=== PATIENT | female | born 1955 | race Caucasian/White ===

== ENCOUNTER → 2016-07-20 | Outpatient (CLI) | payer BC | LOC: WI 11:03 | PROVIDERS: ATTEND Physician Assistant | DX: Z12.31 Encounter for screening mammogram for malignant neoplasm of breast (principal) | CPT/HCPCS: 77067; G0202 ==

== ENCOUNTER 2016-10-16 15:44 | Observation (INO) | payer BC ==
--- NOTE | 2016-10-16 16:23 | ER Document Report ---
ED General - General Chief Complaint: Syncope Stated Complaint: POSSIBLE SYNCOPE Time Seen by Provider: 10/16/16 16:01 Mode of Arrival: Ambulatory Information source: Patient Notes: This is a 61-year-old female with a history of hypertension, TIA, carotid endarterectomy in the past who is brought in by EMS after syncopal episode. Patient states she was at riding motorcycles much of the day have much and did not have much to drink. She states that she was under shade at the time became nauseated and vomited 4 times. Patient states she passed out after vomiting. EMS was called and found patient diaphoretic and wheezing. Oxygen saturation in the field was reported at 88%. Patient was treated in the field with IV fluids, albuterol and ipratropium and IV Zofran. Review of systems: Patient did states she has had some chronic atypical chest pain on and off for the last few days TRAVEL OUTSIDE OF THE [place] IN LAST 30 DAYS: No - HPI Onset: Just prior to arrival Onset/Duration: Sudden Quality of pain: No pain Severity: None Pain Level: Denies Associated symptoms: Shortness of breath. denies: Chills, Nonproductive cough, Productive cough, Fever Exacerbated by: Denies Relieved by: Denies Similar symptoms previously: No Recently seen / treated by doctor: No - Related Data Allergies/Adverse Reactions: Sulfa (Sulfonamide Antibiotics) Allergy (Verified 07/22/15 15:10) Past Medical History - General Information source: Patient - Social History Smoking Status: Current Every Day Smoker Cigarette use (# per day): Yes Chew tobacco use (# tins/day): No Frequency of alcohol use: None Drug Abuse: None Lives with: Family Family History: Reviewed & Not Pertinent Patient has suicidal ideation: No Patient has homicidal ideation: No - Past Medical History Cardiac Medical History: Reports: Hx Hypercholesterolemia, Hx Hypertension Pulmonary Medical History: Reports: Hx Asthma EENT Medical History: Reports: None Neurological Medical History: Reports: None Endocrine Medical History: Reports: None Renal/ Medical History: Reports: None Malignancy Medical History: Reports: None GI Medical History: Reports: None Musculoskeltal Medical History: Reports None Skin Medical History: Reports None Psychiatric Medical History: Reports: None Traumatic Medical History: Reports: None Infectious Medical History: Reports: None Past Surgical History: Reports: Hx Section, Hx Vascular Surgery - L carotid - Immunizations Hx Diphtheria, Pertussis, Tetanus Vaccination: No Review of Systems - Review of Systems Constitutional: denies: Chills, Fever EENT: No symptoms reported Cardiovascular: See HPI Respiratory: No symptoms reported Gastrointestinal: No symptoms reported Genitourinary: No symptoms reported Female Genitourinary: No symptoms reported Musculoskeletal: No symptoms reported Skin: No symptoms reported Hematologic/Lymphatic: No symptoms reported Neurological/Psychological: No symptoms reported Physical Exam - Vital signs Vitals: Temp Pulse Resp BP Pulse Ox 97.7 F 61 19 98/57 L 96 10/16/16 15:48 10/16/16 15:48 10/16/16 15:48 10/16/16 15:48 10/16/16 15:48 Notes: Physical exam: GENERAL: 61-year-old female, alert and oriented 3, appears lethargic but appropriate. HEAD: Atraumatic, normocephalic. EYES: Pupils equal round and reactive to light, extraocular movements intact, sclera anicteric, conjunctiva are normal. ENT: TMs normal, nares patent, oropharynx clear without exudates. Moist mucous membranes. NECK: Normal range of motion, supple without lymphadenopathy or JVD. LUNGS: Breath sounds clear to auscultation bilaterally and equal. No wheezes rales or rhonchi. HEART: Regular rate and rhythm without murmurs, rubs or gallops. ABDOMEN: Soft, normoactive bowel sounds. No tenderness to palpation. No guarding, no rebound. No masses appreciated. EXTREMITIES: Normal range of motion, no pitting or edema. No clubbing or cyanosis. NEUROLOGICAL: Cranial nerves II through XII grossly intact. Normal speech, normal gait. PSYCH: Normal mood, normal affect. SKIN: Warm, Dry, normal turgor, no rashes or lesions noted. Course - Vital Signs Vital signs: Temp Pulse Resp BP Pulse Ox 97.7 F 61 21 H 107/65 99 10/16/16 15:48 10/16/16 15:48 10/16/16 17:09 10/16/16 17:09 10/16/16 17:09 - Laboratory Result Diagrams: 10/16/16 16:50 10/16/16 16:50 Laboratory results interpreted by me: 10/16/16 10/16/16 16:50 16:50 WBC 11.5 H RDW 14.4 H Absolute Neutrophils 8.7 H BUN 22 H Glucose 74 L Creatine Kinase 169 H - Diagnostic Test Radiology reviewed: Image reviewed, Reports reviewed - EKG Interpretation by Me Rate: Normal Rhythm: NSR - EKG shows normal sinus rhythm with a ventricular rate of 60, no acute ST-T wave changes Discharge - Discharge Clinical Impression: Syncope Condition: Stable Disposition: ADMITTED OBSERVATION Admitting Provider: Hospitalist - Dr Coleman Unit Admitted: Telemetry
[2016-10-16 17:15] LABS: ABSOLUTE BASOPHILS # (AUTO) 0.1 10^3/uL (0.0-0.2); ABSOLUTE LYMPHOCYTES (AUTO) 1.7 10^3/uL (0.5-4.7); ABSOLUTE NEUT (AUTO) 8.7 10^3/uL (1.7-8.2); BASOPHILS % (AUTO) 0.5 % (0-2); EOSINOPHILS % (AUTO) 0.3 % (0-6); HEMATOCRIT 38.6 % (36.0-47.0); HEMOGLOBIN 12.7 g/dL (12.0-15.5); HGB HCT DIFFERENCE -0.5; LYMPHOCYTES % (AUTO) 15.2 % (13-45); MEAN CORPUSCULAR HEMOGLOBIN 30.7 pg (27.0-33.4); MEAN CORPUSCULAR HGB CONC 32.8 g/dL (32.0-36.0); MEAN CORPUSCULAR VOLUME 94 fl (80-97); MONOCYTES % (AUTO) 8.3 % (3-13); RED BLOOD COUNT 4.12 10^6/uL (3.72-5.28); RED CELL DISTRIBUTION WIDTH 14.4 % (11.5-14.0); SEGMENTED NEUTROPHILS % (AUTO) 75.7 % (42-78); WHITE BLOOD COUNT 11.5 10^3/uL (4.0-10.5)
[2016-10-16 17:16] LABS: PROTHROMBIN TIME 14.8 SEC (11.4-15.4)
--- NOTE | 2016-10-16 17:22 | RADIOLOGY REPORT (SQ) ---
EXAM DESCRIPTION: CHEST SINGLE VIEW COMPLETED DATE/TIME: 10/16/2016 4:41 pm REASON FOR STUDY: syncope COMPARISON: 07/22/2015 EXAM PARAMETERS: NUMBER OF VIEWS: One view. TECHNIQUE: Single frontal radiographic view of the chest acquired. RADIATION DOSE: NA LIMITATIONS: None. FINDINGS: LUNGS AND PLEURA: No acute opacities, masses or pneumothorax. No pleural effusion. MEDIASTINUM AND HILAR STRUCTURES: No masses. Contour normal. HEART AND VASCULAR STRUCTURES: Heart normal in size. Normal vasculature. BONES: No acute findings. HARDWARE: None in the chest. OTHER: No other significant finding. IMPRESSION: NO ACUTE RADIOGRAPHIC FINDING IN THE CHEST. TECHNICAL DOCUMENTATION: JOB ID: [id number]
[2016-10-16 17:32] LABS: ALANINE AMINOTRANSFERASE 30 U/L (9-52); ALKALINE PHOSPHATASE 56 U/L (38-126); ANION GAP 8 (5-19); ASPARTATE AMINO TRANSFERASE 31 U/L (14-36); BILIRUBIN,DIRECT 0.3 mg/dL (0.0-0.4); BILIRUBIN,TOTAL 0.6 mg/dL (0.2-1.3); BLOOD UREA NITROGEN 22 mg/dL (7-20); CALCIUM 9.7 mg/dL (8.4-10.2); CARBON DIOXIDE 24 mmol/L (22-30); CHLORIDE 107 mmol/L (98-107); CREATINE KINASE 169 U/L (30-135); CREATININE RESULT 0.88 mg/dL (0.52-1.25); GLUCOSE 74 mg/dL (75-110); POTASSIUM 4.3 mmol/L (3.6-5.0); SODIUM 138.5 mmol/L (137-145); TOTAL PROTEIN 6.4 g/dL (6.3-8.2)
[2016-10-16 17:41] LABS: CREATINE KINASE MB 1.32 ng/mL (<4.55); TROPONIN I < 0.012 ng/mL
[2016-10-16] MEDS ORDERED: NORMAL SALINE 1000 ML 1,000 ML IV PRN ×2 (18:09→18:21)
[2016-10-16] MEDS ORDERED: ACETAMINOPHEN 325 MG TABLET PO PRN (18:21)
[2016-10-16] MEDS ORDERED: ONDANSETRON HCL INJ/PF 4 MG/2 ML SDV IV PRN (18:21)
[2016-10-16] MEDS ORDERED: ALBUTEROL SULFATE 0.083% NEB 2.5 MG/3 ML AMPUL NEB PRN (18:21)
[2016-10-16] MEDS ORDERED: ONDANSETRON 4 MG TAB.RAPDIS PO PRN (18:21)
--- NOTE | 2016-10-16 18:41 | PDOC H&P ---
History of Present Illness Admission Date/PCP: KYLER MACEDO MD Patient complains of: Blackout spell History of Present Illness: ERICA GORDON is a 61 year old female a previous history of CVA who presents after having a syncopal episode. The patient was out riding her motorcycle today with her significant other and she reports that they stopped at a bar for a beer and some food. The patient reports that after eating she felt dizzy and lightheaded and then began vomiting. She then had a witnessed syncopal episode but was only out for a very short period of time and regained consciousness. She did not have any tonic-clonic movement activity. She denied having any palpitations or tachycardia. It was witnessed by her significant other and she did not have any tonic-clonic movements. Patient relates that she did have problems with some numbness and tingling in her right hand earlier today and on exam she does have decreased right soft work wrapper examiner strength. She has had a previous CVA and had a left carotid endarterectomy done for significant occlusion. The patient also was noted to be hypoxic when she first was picked up by EMS with an oxygen saturation in the 80s. The patient has been has felt dizzy when she stands up but has already gotten IV fluids at the time of my exam. Past Medical History Cardiac Medical History: Reports: Hyperlipidema, Hypertension, Peripheral Vascular Disease Pulmonary Medical History: Reports: Asthma EENT Medical History: Reports: None Neurological Medical History: Reports: Ischemic CVA, Other - Bowser's palsy Endocrine Medical History: Reports: Gestational Diabetes Renal/ Medical History: Reports: None Malignancy Medical History: Reports: None GI Medical History: Reports: None Musculoskeltal Medical History: Reports: None Skin Medical History: Reports: None Psychiatric Medical History: Reports: None Traumatic Medical History: Reports: None Hematology: Reports: None Infectious Medical History: Reports: None Past Surgical History Past Surgical History: Reports: Section, Vascular Surgery - L carotid endarterectomy Social History Information Source: Patient Lives with: Family Smoking Status: Current Every Day Smoker Frequency of Alcohol Use: Rare Hx Recreational Drug Use: No Drugs: None Hx Prescription Drug Abuse: No - Advance Directive Resuscitation Status: Full Code Family History Family History: Mother had diabetes and hypertension. Father had pancreatic cancer. Parental Family History Reviewed: Yes Children Family History Reviewed: No Sibling(s) Family History Reviewed.: No Medication/Allergy Home Medications: No Home Medications 07/22/15 Allergies/Adverse Reactions: Sulfa (Sulfonamide Antibiotics) Allergy (Verified 07/22/15 15:10) Review of Systems Constitutional: ABSENT: chills, fever(s), headache(s), weight gain, weight loss Eyes: ABSENT: visual disturbances Ears: ABSENT: hearing changes Cardiovascular: ABSENT: chest pain, dyspnea on exertion, edema, orthropnea, palpitations Respiratory: ABSENT: cough, hemoptysis Gastrointestinal: PRESENT: heartburn, nausea, vomiting. ABSENT: abdominal pain , constipation, diarrhea, hematemesis, hematochezia Genitourinary: ABSENT: dysuria, hematuria Musculoskeletal: ABSENT: joint swelling Integumentary: ABSENT: rash, wounds Neurological: PRESENT: weakness - Right hand Psychiatric: ABSENT: anxiety, depression Endocrine: ABSENT: cold intolerance, heat intolerance, polydipsia, polyuria Hematologic/Lymphatic: ABSENT: easy bleeding, easy bruising Physical Exam Vital Signs: Temp Pulse Resp BP Pulse Ox 97.7 F 61 21 H 107/65 99 10/16/16 15:48 10/16/16 15:48 10/16/16 17:09 10/16/16 17:09 10/16/16 17:09 General appearance: PRESENT: no acute distress, well-developed, well-nourished Head exam: PRESENT: atraumatic, normocephalic Eye exam: PRESENT: conjunctiva pink, EOMI, PERRLA. ABSENT: scleral icterus Ear exam: PRESENT: normal external ear exam Mouth exam: PRESENT: moist, tongue midline Neck exam: ABSENT: carotid bruit, JVD, lymphadenopathy, thyromegaly Respiratory exam: PRESENT: clear to auscultation halle. ABSENT: rales, rhonchi, wheezes Cardiovascular exam: PRESENT: RRR. ABSENT: diastolic murmur, rubs, systolic murmur Pulses: PRESENT: normal dorsalis pedis pul Vascular exam: PRESENT: normal capillary refill GI/Abdominal exam: PRESENT: normal bowel sounds, soft. ABSENT: distended, guarding, mass, organolmegaly, rebound, tenderness Rectal exam: PRESENT: deferred Extremities exam: ABSENT: calf tenderness, clubbing, pedal edema Neurological exam: PRESENT: alert, awake, oriented to person, oriented to place , oriented to time, oriented to situation, motor sensory deficit - Patient's right soft work wrapper examiner strength is slightly decreased compared to her left.. ABSENT: CN II- XII grossly intact - Some residual right-sided ptosis from Bowser's palsy Psychiatric exam: PRESENT: appropriate affect, normal mood Skin exam: PRESENT: dry, intact, warm. ABSENT: cyanosis, rash Results Laboratory Results: 10/16/16 16:50 10/16/16 16:50 10/16/16 10/16/16 16:50 16:50 WBC 11.5 H RBC 4.12 Hgb 12.7 Hct 38.6 MCV 94 MCH 30.7 MCHC 32.8 RDW 14.4 H Plt Count 229 Seg Neutrophils % 75.7 Lymphocytes % 15.2 Monocytes % 8.3 Eosinophils % 0.3 Basophils % 0.5 Absolute Neutrophils 8.7 H Absolute Lymphocytes 1.7 Absolute Monocytes 1.0 Absolute Eosinophils 0.0 Absolute Basophils 0.1 Sodium 138.5 Potassium 4.3 Chloride 107 Carbon Dioxide 24 Anion Gap 8 BUN 22 H Creatinine 0.88 Est GFR ( Amer) > 60 Est GFR (Non-Af Amer) > 60 Glucose 74 L Calcium 9.7 Total Bilirubin 0.6 AST 31 ALT 30 Alkaline Phosphatase 56 Total Protein 6.4 Albumin 4.0 10/16/16 10/16/16 16:50 16:50 Creatine Kinase 169 H CK-MB (CK-2) 1.32 Troponin I < 0.012 NT-Pro-B Natriuret Pep 32 Impressions: Chest X-Ray 10/16/16 16:01 IMPRESSION: NO ACUTE RADIOGRAPHIC FINDING IN THE CHEST. Assessment & Plan - Diagnosis (1) Syncope Is this a current diagnosis for this admission?: YesPlan: The patient had an episode of syncope that occurred after eating and then vomiting. This may all just be a vasovagal episode associated with her vomiting. The patient continues to have bradycardia and has gotten IV fluids. Patient does have some right soft work wrapper examiner strength decreased on the right which makes me concerned that she may have had a small CVA as the cause for her symptoms. We will obtain a head CT and monitor overnight. If she continues to have symptoms in the morning would obtain MRI of the brain. The patient does have some bradycardia which could be from the vagal episode as she does not take any beta blockers. Will treat with aspirin and iv fluids. (2) TIA (transient ischemic attack) Is this a current diagnosis for this admission?: YesPlan: History of Bowser's palsy with right-sided facial droop but she still has slightly. She also has right soft work wrapper examiner strength is decreased today. She reports that that is new. She also reports that she has had some paresthesias that started earlier today involving her right hand. We will get a head CT to evaluate today and if she continues to be symptomatic given MRI in the morning. Patient has had a previous CVA involving her left carotid artery and had a endarterectomy done last year. She has been compliant with aspirin and we will continue with that. (3) Hypertension Is this a current diagnosis for this admission?: YesPlan: Her Norvasc and lisinopril as her blood pressure has been on the low side. (4) Hyperlipidemia Is this a current diagnosis for this admission?: YesPlan: Continue with the Lipitor. - Time Time Spent: 50 to 70 Minutes - Inpatient Certification Medical Necessity: Need Close Monitoring Due to Risk of Patient Decompensation, Need for Neurological Checks, Need for IV Antibiotics - Plan Summary Plan Summary: Admit as observation
--- NOTE | 2016-10-16 20:05 | RADIOLOGY REPORT (SQ) ---
EXAM DESCRIPTION: CT HEAD WITHOUT COMPLETED DATE/TIME: 10/16/2016 7:01 pm REASON FOR STUDY: right arm weakness COMPARISON: 07/26/2015 TECHNIQUE: Axial images acquired through the brain without intravenous contrast. Images reviewed wi th bone, brain and subdural windows. Images stored on PACS. All CT scanners at this facility use dose modulation, iterative reconstruction, and/or weight based d osing when appropriate to reduce radiation dose to as low as reasonably achievable (ALARA). [facility]: Dose Right [facility]: CareDose [facility]: Dose Right [facility]: Teradose 4D [facility]: [employer] RADIATION DOSE: 64.61 mGy. LIMITATIONS: None. FINDINGS: VENTRICLES: Normal size and contour. CEREBRUM: No masses. No hemorrhage. No midline shift. Normal gaspar/white matter differentiation. N o evidence for acute infarction. CEREBELLUM: No masses. No hemorrhage. No alteration of density. No evidence for acute infarction. EXTRAAXIAL SPACES: No fluid collections. No masses. ORBITS AND GLOBE: No intra- or extraconal masses. Normal contour of globe without masses. CALVARIUM: No fracture. PARANASAL SINUSES: No fluid or mucosal thickening. SOFT TISSUES: No mass or hematoma. OTHER: No other significant finding. IMPRESSION: No acute intracranial findings. TECHNICAL DOCUMENTATION: JOB ID: [id number] Quality ID # [id number]: Final reports with documentation of one or more dose reduction techniques (e.g., Au tomated exposure control, adjustment of the mA and/or kV according to patient size, use of iterative reconstruction technique) 2010 [employer]- All Rights Reserved
--- NOTE | 2016-10-16 20:51 | RADIOLOGY REPORT (SQ) ---
EXAM DESCRIPTION: CTA CHEST COMPLETED DATE/TIME: 10/16/2016 7:01 pm REASON FOR STUDY: syncope COMPARISON: None. TECHNIQUE: CT scan of the chest performed using helical scanning technique with dynamic intravenous contrast injection. Images reviewed with lung, soft tissue and bone windows. Reconstructed coronal and sagittal MPR images reviewed. Additional 3 dimensional post-processing performed to develop Maximal Intensity Projection images (MO P). All images stored on PACS. All CT scanners at this facility use dose modulation, iterative reconstruction, and/or weight based d osing when appropriate to reduce radiation dose to as low as reasonably achievable (ALARA). [facility]: Dose Right [facility]: CareDose [facility]: Dose Right [facility]: Teradose 4D [facility]: [employer] CONTRAST TYPE AND DOSE: 68 mL Isovue 370- low osmolar. RENAL FUNCTION: GFR > 60. RADIATION DOSE: 49.68 mGy. LIMITATIONS: None. FINDINGS: LUNGS AND PLEURA: No masses, infiltrates, pneumothorax. Small calcified granulomas. Mini mal chronic interstitial changes. No pleural effusions, calcifications. AORTA AND GREAT VESSELS: No aneurysm or dissection. HEART: No pericardial effusion. PULMONARY ARTERIES: No emboli visualized in the main pulmonary arteries or the segmental branches. HILAR AND MEDIASTINAL STRUCTURES: No identified masses or abnormal nodes. HARDWARE: None in the chest. UPPER ABDOMEN: No significant findings. Limited exam. THYROID AND OTHER SOFT TISSUES: No masses. No adenopathy. BONES: No acute or significant finding. 3D MIPS: Confirm above findings. OTHER: No other significant finding. IMPRESSION: No emboli visualized in the main pulmonary arteries or the segmental branches. No acute pulmonary findings. TECHNICAL DOCUMENTATION: JOB ID: [id number] Quality ID # [id number]: Final reports with documentation of one or more dose reduction techniques (e.g., Au tomated exposure control, adjustment of the mA and/or kV according to patient size, use of iterative reconstruction technique) 2010 [employer]- All Rights Reserved
--- NOTE | 2016-10-16 21:13 | EKG REPORT ---
SEVERITY:- NORMAL ECG - SINUS RHYTHM : Confirmed by: Carlos Key 16-Oct-2016 21:12:29
[2016-10-16] MEDS ORDERED: ATORVASTATIN CALCIUM 20 MG TABLET PO SCH (22:00)
[2016-10-17 05:20] LABS: HEMOGLOBIN 12.8 g/dL (12.0-15.5); HGB HCT DIFFERENCE 0.4; MEAN CORPUSCULAR HEMOGLOBIN 31.5 pg (27.0-33.4); MEAN CORPUSCULAR HGB CONC 33.8 g/dL (32.0-36.0); MEAN CORPUSCULAR VOLUME 93 fl (80-97); RED BLOOD COUNT 4.07 10^6/uL (3.72-5.28); RED CELL DISTRIBUTION WIDTH 14.2 % (11.5-14.0); WHITE BLOOD COUNT 8.3 10^3/uL (4.0-10.5)
[2016-10-17 05:44] LABS: ANION GAP 10 (5-19); BLOOD UREA NITROGEN 14 mg/dL (7-20); CALCIUM 9.1 mg/dL (8.4-10.2); CARBON DIOXIDE 22 mmol/L (22-30); CHLORIDE 111 mmol/L (98-107); CREATININE RESULT 0.64 mg/dL (0.52-1.25); GLUCOSE 78 mg/dL (75-110); POTASSIUM 4.3 mmol/L (3.6-5.0)
[2016-10-17] MEDS ORDERED: ASPIRIN 325 MG TABLET PO SCH (10:00)
--- NOTE | 2016-10-17 10:29 | PDOC DISCHARGE SUMMARY ---
General - Admit/Disc Date/PCP Admission Date/Primary Care Provider: 10/16/16 18:21 KYLER MACEDO MD Discharge Date: 10/17/16 - Discharge Diagnosis (1) Syncope Is this a current diagnosis for this admission?: Yes (2) Hyperlipidemia Is this a current diagnosis for this admission?: Yes (3) Hypertension Is this a current diagnosis for this admission?: Yes (4) History of stroke Is this a current diagnosis for this admission?: Yes - Additional Information Resuscitation Status: Full Code Discharge Diet: Cardiac - low fat, low salt Discharge Activity: Activity As Tolerated, Balance Activity w/Rest Home Medications: Amlodipine Besylate [Norvasc 5 mg Tablet] 5 mg PO DAILY 10/17/16 Aspirin [Aspirin 325 mg Tablet] 325 mg PO DAILY tablet 10/17/16 Atorvastatin Calcium [Lipitor 20 mg Tablet] 20 mg PO DAILY 10/17/16 Ergocalciferol (Vitamin D2) [Drisdol 50,000 unit (1.25MG) Capsule] 50,000 units PO Q7D 10/17/16 Lisinopril [Zestril] 20 mg PO DAILY 10/17/16 Additional Information: Return to the emergency room if symptoms recur History of Present Illness Patient complains of: Blackout spell History of Present Illness: ERICA GORDON is a 61 year old female, with history of hypertension and hyperlipidemia as well as prior stroke who presents to the emergency room because of reported blackout spell. Patient went to a restaurant yesterday and drank a bottle of beer and apparently on their way home she felt dizzy. Patient had an episode of nausea and vomiting from the dizziness. Blood pressure was noted to be low on presentation which is unusual for her. Patient was given intravenous fluid and was referred for admission. Patient had reported episode on the hand weakness on the right. There is likewise numbness reported. For details please refer to history and physical examination performed by the admitting physician. Hospital Course Hospital Course: The patient was admitted to telemetry. The patient was continued on intravenous fluids. Patient significantly improved and felt better the following day. No reported hypotension. Her blood pressure medications were held however. She had a head CT scan that did not show any acute abnormality and a chest CT scan, showing no infiltrate or pulmonary embolism. The patient wanting to go home and be discharged. Patient was educated about fluid management and antihypertensive medication intake and she understood. She was advised to return to the emergency room if her symptoms recur. Patient denies any new weakness on the upper extremity. The patient likewise reports she has chronic problem with numbness on the mentioned extremity on presentation due to her chronic neck condition as reported by her physician. The rest of the hospital stays unremarkable. Physical Exam Vital Signs: Temp Pulse Resp BP Pulse Ox 97.7 F 53 L 16 143/75 H 97 10/17/16 07:28 10/17/16 07:28 10/17/16 07:28 10/17/16 07:28 10/17/16 07:28 Intake & Output 10/16/16 10/17/16 10/18/16 06:59 06:59 06:59 Intake Total 1506 Output Total 750 Balance 756 Weight 70 kg General appearance: PRESENT: no acute distress, cooperative, obese Head exam: PRESENT: normocephalic Eye exam: PRESENT: EOMI Mouth exam: PRESENT: moist, neck supple Neck exam: ABSENT: JVD Respiratory exam: PRESENT: clear to auscultation halle. ABSENT: rhonchi, wheezes Cardiovascular exam: PRESENT: RRR. ABSENT: gallop GI/Abdominal exam: PRESENT: normal bowel sounds, soft. ABSENT: distended, tenderness Extremities exam: ABSENT: pedal edema Neurological exam: PRESENT: awake, oriented to person, oriented to place, oriented to time, oriented to situation Skin exam: PRESENT: dry, warm. ABSENT: cyanosis Results Laboratory Results: 10/17/16 04:00 10/17/16 04:00 10/17/16 10/17/16 04:00 04:00 WBC 8.3 RBC 4.07 Hgb 12.8 Hct 38.0 MCV 93 MCH 31.5 MCHC 33.8 RDW 14.2 H Plt Count 180 Sodium 143.0 Potassium 4.3 Chloride 111 H Carbon Dioxide 22 Anion Gap 10 BUN 14 Creatinine 0.64 Est GFR ( Amer) > 60 Est GFR (Non-Af Amer) > 60 Glucose 78 Calcium 9.1 10/16/16 21:38 Troponin I < 0.012 Impressions: Head CT 10/16/16 00:00 IMPRESSION: No acute intracranial findings. Chest X-Ray 10/16/16 16:01 IMPRESSION: NO ACUTE RADIOGRAPHIC FINDING IN THE CHEST. Chest/Abdomen CTA 10/16/16 17:57 IMPRESSION: No emboli visualized in the main pulmonary arteries or the segmental branches. No acute pulmonary findings. Qualifiers PATEINT BEING DISCHARGED WITH ANY OF THE FOLLOWING DIAGNOSIS?: No Plan Discharge Plan: Follow-up with primary care physician in 1 week Time Spent: Less than 30 Minutes
[2016-10-17 11:07] VITALS: BP 98/57
== END 2016-10-17 11:46 | disposition home or self-care (01) ==
LOC: ER 15:44 → EH 18:21 → UNDOADMOB 18:30 → 3N 22:30
PROVIDERS: ADMIT Internal Medicine; ATTEND Internal Medicine
DX: R55 Syncope and collapse (principal); E78.5 Hyperlipidemia, unspecified; I10 Essential (primary) hypertension; R42 Dizziness and giddiness; R11.2 Nausea with vomiting, unspecified; R53.1 Weakness; R09.02 Hypoxemia; R20.0 Anesthesia of skin; R20.2 Paresthesia of skin; I73.9 Peripheral vascular disease, unspecified; R12 Heartburn; H02.401 Unspecified ptosis of right eyelid; R29.810 Facial weakness; R00.1 Bradycardia, unspecified; F17.210 Nicotine dependence, cigarettes, uncomplicated; R06.2 Wheezing; R06.02 Shortness of breath; Z86.73 Personal history of transient ischemic attack (TIA), and cerebral infarction without residual deficits; Z79.899 Other long term (current) drug therapy; Z79.82 Long term (current) use of aspirin; Z98.890 Other specified postprocedural states; Z87.19 Personal history of other diseases of the digestive system
CPT/HCPCS: 93005; 99285; 36415 ×2; 82553; 82550; 85025; 85027; 85610; 80048; 80053; 84484; 83880; 71010; 70450; 71275; 93010; G0378 ×3; J3490 ×2; J7030

== ENCOUNTER 2018-11-21 21:31 | Emergency (ER) | payer SELFPAY ==
[2018-11-21 21:43] VITALS: BP 193/89
--- NOTE | 2018-11-21 23:16 | ER Document Report ---
ED General - General Chief Complaint: Chest Pressure Stated Complaint: SHORT OF BREATH Time Seen by Provider: 11/21/18 23:15 Primary Care Provider: KYLER MACEDO MD [NO LOCAL MD] - 11/22/18 Notes: Patient is a pleasant 63-year-old female presents with complaint of a 30-minute episode of chest pain. She said it felt like a burning going across her chest with a metallic taste that went into her throat and mouth. She does have a history of acid reflux but said this felt different. She says that symptoms have completely resolved and she now feels well. She has no history of coronary disease. She does smoke. She says the symptoms actually started immediately after smoking marijuana. She denies any cocaine use. No other complaints at this time. She does have a family history of coronary artery disease. TRAVEL OUTSIDE OF THE [place] IN LAST 30 DAYS: No - Related Data Allergies/Adverse Reactions: Sulfa (Sulfonamide Antibiotics) Allergy (Verified 07/22/15 15:10) Past Medical History - Social History Smoking Status: Current Some Day Smoker Frequency of alcohol use: None Drug Abuse: Marijuana Family History: Reviewed & Not Pertinent - Past Medical History Cardiac Medical History: Reports: Hx Hypercholesterolemia, Hx Hypertension, Hx Peripheral Vascular Disease Pulmonary Medical History: Reports: Hx Asthma Psychiatric Medical History: Denies: Hx Depression Past Surgical History: Reports: Hx Section, Hx Vascular Surgery - L carotid endarterectomy - Immunizations Hx Diphtheria, Pertussis, Tetanus Vaccination: No Review of Systems - Review of Systems Notes: My Normal Review Basic REVIEW OF SYSTEMS: CONSTITUTIONAL : Denies fever, chills, or sweats. Denies recent illness. EENT: Denies eye, ear, throat, or mouth pain or symptoms. Denies nasal or sinus congestion. CARDIOVASCULAR: Chest pain RESPIRATORY: Denies cough, cold, or chest congestion. Denies shortness of breath, difficulty breathing, or wheezing. GASTROINTESTINAL: Denies abdominal pain. Denies nausea, vomiting, or diarrhea. MUSCULOSKELETAL: Denies neck or back pain or joint pain or swelling. SKIN: Denies rash or skin lesions. NEUROLOGICAL: Denies altered mental status or loss of consciousness. Denies headache. Denies weakness or paralysis or loss of use of either side. Denies problems with gait or speech. Denies sensory or motor loss. ALL OTHER SYSTEMS REVIEWED AND NEGATIVE. Physical Exam - Vital signs Vitals: Temp Pulse Resp BP Pulse Ox 98.3 F 94 18 193/89 H 94 11/21/18 21:41 11/21/18 21:41 11/21/18 21:41 11/21/18 21:41 11/21/18 21:41 - Notes Notes: General Appearance: Well nourished, alert, cooperative, no acute distress, no obvious discomfort. Well-appearing. Vitals: reviewed, See vital signs table. Head: no swelling or tenderness to the head Eyes: PERRL, EOMI, Conjuctiva clear Mouth: No decreasd moisture Lungs: No wheezing, No rales, No rhonci, No accessory muscle use, good air exchange bilaterally. Heart: Normal rate, Regular rythm, No murmur, no rub Abdomen: Normal BS, soft, No rigidity, No abdominal tenderness, No guarding, no rebound, no abdominal masses Extremities: good pulses in all extremities, no swelling or tenderness in the extremities, no edema. Skin: warm, dry, appropriate color, no rash Neuro: speech clear, oriented x 3, normal affect, responds appropriately to questions. Course - Re-evaluation Re-evalutation: 11/22/18 07:37 Patient does have some cardiac risk factors including high blood pressure and family history. I strongly encouraged her to stay as it is not exactly clear what caused her chest pain. It could be related to the marijuana she smoked however she is never had this type of reaction before to it. I informed her that I would at least want to get a cardiac enzymes to make sure that her cardiac enzymes are normal. Patient says that she feels well and does not want to stay. I explained to her and her that if her chest pain was a warning sign for heart attack then she could go home have a heart attack and . Patient is understanding of this but still request to leave. Informed patient that we want what is best for her to want her to do well and therefore we strongly recommend she return to ER anytime for reevaluation for treatment. Patient is appreciative of this and agrees. Patient will be discharged home as she requests. Dictation of this chart was performed using voice recognition software; therefore, there may be some unintended grammatical errors. - Vital Signs Vital signs: Temp Pulse Resp BP Pulse Ox 98.3 F 94 18 193/89 H 94 11/21/18 21:41 11/21/18 21:41 11/21/18 21:41 11/21/18 21:41 11/21/18 21:41 - EKG Interpretation by Me Additional EKG results interpreted by me: 11/21/18 23:16 EKG is reviewed and interpreted by me. EKG shows normal sinus rhythm with rate of [address] segment elevation or depression. No ischemic T wave inversions. LA interval, QRS duration, QT intervals are within normal range. Old EKG for comparison is from October 16, 2016. Discharge - Discharge Clinical Impression: Chest pain Qualifiers: Chest pain type: unspecified Qualified Code(s): R07.9 - Chest pain, unspecified Condition: Stable Disposition: HOME, SELF-CARE Additional Instructions: As discussed with you, I cannot say for sure that you do not have an impending heart attack or that you have any blockages in your heart without doing for the lab test. A heart attack can lead to . There is no way to determine whether or not you will have a bad outcome within the next 24 hours and this is why we prefer you to stay. We respect your decision to leave and understand that you do have prior priorities. Even though you are leaving we are not upset or mad. We just want what is best for you and therefore we encourage you to come back anytime if you have any recurrence of your symptoms. If you do not return to the ER, please follow-up closely with your doctor within the next couple days for reevaluation. Please avoid all marijuana use. Referrals: KYLER MACEDO MD [NO LOCAL MD] - 11/22/18
--- NOTE | 2018-11-22 14:00 | EKG REPORT ---
SEVERITY:- NORMAL ECG - SINUS RHYTHM : Confirmed by: Carlos Key 22-Nov-2018 14:00:04
== END 2018-11-22 00:23 | disposition home or self-care (01) ==
LOC: ER 21:31
DX: R07.9 Chest pain, unspecified (principal); F17.200 Nicotine dependence, unspecified, uncomplicated; E78.00 Pure hypercholesterolemia, unspecified; I10 Essential (primary) hypertension; Z88.2 Allergy status to sulfonamides
CPT/HCPCS: 93005; 93010; 99284